=== PATIENT | female | born 1985 | race Caucasian/White ===

== ENCOUNTER 2022-09-27 16:52 | Emergency (ER) | payer MEDICAID ==
[~2022-09-27] VITALS: Ht 160 cm; Wt 70.0 kg
[2022-09-27 17:27] VITALS: BP 163/85
[2022-09-27] MEDS ORDERED: TOPUD MT (23:37)
[2022-09-27] MEDS ORDERED: IBUP-2028 MT (23:37)
== END 2022-09-28 00:10 | disposition home or self-care (01) ==
LOC: ER 16:52
DX: S93.492A Sprain of other ligament of left ankle, initial encounter (principal); X50.1XXA Overexertion from prolonged static or awkward postures, initial encounter; Y93.01 Activity, walking, marching and hiking; Y92.9 Unspecified place or not applicable; Z98.890 Other specified postprocedural states
CPT/HCPCS: 73610; 73630; 99284

== ENCOUNTER 2024-07-24 18:00 | Emergency (ER) | payer MEDICAID ==
[~2024-07-24] VITALS: Ht 160 cm; Wt 70.3 kg
[~2024-07-24 18:00] MED LIST: IBUP-2028 MT; TOPUD MT
[2024-07-24 18:08] VITALS: O2SAT 100
[2024-07-24] MEDS ORDERED: IBUP-2029 MT (19:22)
[2024-07-24] MEDS: KETOROLAC 30MG/ML VIAL IM ONE (20:04)
[2024-07-24 20:52] VITALS: BP 128/60; PULSE 71; RESP 16; TEMP 36.83628; O2SAT 100
== END 2024-07-24 20:57 | disposition home or self-care (01) ==
LOC: ER 18:00
DX: G43.909 Migraine, unspecified, not intractable, without status migrainosus (principal); F17.210 Nicotine dependence, cigarettes, uncomplicated; Z98.890 Other specified postprocedural states
CPT/HCPCS: 99283; 71045; 81025; 96372; J1885

== ENCOUNTER 2025-07-22 22:16 | Emergency (ER) | payer MEDICAID ==
[~2025-07-22] VITALS: Ht 162.6 cm; Wt 72.0 kg
[~2025-07-22 22:16] MED LIST changes: +IBUP-1455 MT
[2025-07-22 22:36] VITALS: TEMP 36.9
[2025-07-23] MEDS: DIPHENHYDRAMINE 25MG CAPSULE PO ONE (00:27)
[2025-07-23] MEDS: KETOROLAC 15MG/ML VIAL IM ONE (00:27)
[2025-07-23] MEDS: METOCLOPRAMIDE HCL 10MG TABLET PO ONE (00:27)
[2025-07-23] MEDS ORDERED: NAPR-1176 MT (01:02)
[2025-07-23 01:30] VITALS: BP 146/85; PULSE 76; RESP 18; O2SAT 100
== END 2025-07-23 01:32 | disposition home or self-care (01) ==
LOC: ER 22:16
DX: G43.909 Migraine, unspecified, not intractable, without status migrainosus (principal); Z79.1 Long term (current) use of non-steroidal anti-inflammatories (NSAID)
CPT/HCPCS: 99283; 81025; 96372; J1885; Q0163; J8597